=== PATIENT | male | born 1990 | race Caucasian/White ===

== ENCOUNTER → 2019-04-18 09:26 | Outpatient (CLI) | payer MEDICAID, SELFPAY ==
--- NOTE | 2019-04-18 09:29 | US_ITS ---
US abdomen complete COMPARISON: None HISTORY: ] Quadrant pain for 3 weeks TECHNIQUE: Ultrasound abdomen complete FINDINGS: The pancreas appears normal though portion of the tail is obscured by bowel gas. The liver is normal size and liver parenchyma appears normal. The gallbladder is normal size. There is a tiny amount biliary sludge present but no definite gallstones are seen. There is borderline gallbladder wall thickening but there is no pericholecystic fluid noted. The portal vein appears normal and flow is hepatopetal. The right kidney measures 11.1 x 5.5 x 6.9 cm and appears sonographically normal. The left kidney measures 11.0 x 5.7 x 6.3 cm and appears sonographically normal. The spleen appears normal. IMPRESSION: Small amount biliary sludge, no definite gallstones seen, otherwise unremarkable study
== END ==
PROVIDERS: PCP Nurse Practitioner Family; Visit Provider Nurse Practitioner Family
DX: R10.84 Generalized abdominal pain (principal)
CPT/HCPCS: 76700

== ENCOUNTER → 2019-04-29 10:21 | Outpatient (CLI) | payer MEDICAID, SELFPAY ==
--- NOTE | 2019-04-29 10:23 | NM_ITS ---
NM hepatobiliary w pharm HISTORY: Right upper quadrant pain with nausea and vomiting ITS.REASON: ACUTE CHOLECYSTITIS ORDERING PHYSICIAN: Bing Holt APRN PATIENT AGE: 28 years COMPARISON: None DOSE: 7.70 mci tc choletec 2.1 mcg of cck FINDINGS: Homogeneous activity is present within the hepatic parenchyma. Activity is present in the gallbladder by 15 minutes. Activity is present in the small bowel by 20 minutes. The gallbladder ejection fraction is calculated to be 95% The patient did not report pain or other symptoms during CCK infusion. IMPRESSION: Unremarkable hepatobiliary scan and gallbladder ejection fraction. No evidence of common or cystic duct obstruction with normal gallbladder ejection fraction
--- NOTE | 2019-04-29 11:21 | HMH.ITSHM ---
Current Home Medications as stated by this patient Guilherme Patton or premium service representative. [] effexor levothyroxie metoprolol gabapentin
== END ==
PROVIDERS: PCP Nurse Practitioner Family; Visit Provider Nurse Practitioner Family
DX: K81.0 Acute cholecystitis (principal)
CPT/HCPCS: 78227; A9537; J2805

== ENCOUNTER 2020-07-01 17:59 | Emergency (ER) | payer OTHER, SELFPAY ==
[2020-07-01 18:18] VITALS: BP 135/77; PULSE 64; RESP 14; TEMP 36.5; O2SAT 99; BMI 28.7
--- NOTE | 2020-07-01 18:40 | HMH.EDUTC ---
[facility] [place] Clinical Impression: Exposure to COVID-19 virus Disposition: Home, Self-Care Condition on Discharge: Good Instructions: Preventing the Spread of Coronavirus Discharge Instructions Additional Instructions: FOLLOW THE DIRECTIONS ON THE COVID-19 HAND OUT THAT WE GAVE YOU REGARDING SELF-ISOLATION UNTIL YOU KNOW YOUR COVID-19 RESULTS Referrals: Concha Flor APRN [Primary Care Provider] - Forms: Work/School Release Time of Disposition: 18:45 Medical Decision Making - Medical Records Medical records reviewed: No: I reviewed the patient's medical records. - Rudy Inquiry Pt receiving controlled substance: No Vital Signs: 07/01/20 18:18 07/01/20 18:52 Temperature 97.7 F 97.7 F Temperature Source Oral Pulse Rate 64 Pulse Rate [Right Brachial] 64 Respiratory Rate 14 14 Blood Pressure 135/77 Blood Pressure [Right Arm] 135/77 Blood Pressure Mean [Right Arm] 96 Blood Pressure Source [Right Arm] Automatic Cuff Blood Pressure Position [Right Arm] Sitting 02 Sat by Pulse Oximetry 99 Oxygen Delivery Method Room Air [facility] [place] - General Stated complaint: covid exposure Time Seen by Provider: 07/01/20 18:30 Mode of Arrival: Ambulatory Source of Information: Patient Limitations: No Limitations Description of Symptoms (Recalled from Triage Doc. by RN): PATIENT C/O FATIGUE AND BODY ACHES. STATES HE WAS EXPOSED TO COVID 6 DAYS AGO HEENT Symptoms (Recalled from RN notes): No Resp Symptoms (Recalled from RN notes): No Skin Symptoms (Recalled from RN notes): No MS Symptoms (Recalled from RN notes): Yes Functional Status (Recalled from RN notes): WNL - History of Present Illness Provider Complaint: His mother and father both have been sick with covid. He has been around them a lot before it was found that they have covid. - Related Data Home Medications Medication Instructions Recorded Confirmed Metoprolol Succinate 50 mg PO DAILY 05/19/19 07/01/20 Buprenorphine HCl/Naloxone HCl 1 each SL DAILY 07/01/20 07/01/20 [Buprenorphin-Naloxon 8-2 mg Sl] Allergies Allergy/AdvReac Type Severity Reaction Status Date / Time Penicillins Allergy Verified 06/20/18 10:20 - Worker's Comp Is this a Worker's Comp case?: No [facility] History - Hepatitis A Screen Drug use history?: No High risk sexual behaviors?: No History of sexually transmitted infection?: No Currently employed?: No Childcare worker?: No Do you have indoor plumbing?: Yes Do you have electricity?: Yes Attestation statement:: This patient has been screened for Hepatitis A risk factors. I have reviewed the patient's past medical history: Yes Medical History: Reports:: Hypertension Denies:: Diabetes Mellitus Type 1, Diabetes Mellitus Type 2, Internal Pacemaker, Lung Disease, Seizures Laterality Cases: Bilateral: Tonsillectomy Other Surgeries: No: Pacemaker - Social History Smoking Status: Current every day smoker Tobacco Type: cigarettes # Packs/Day (cigarettes): 1 #Yrs smoked (if former smoker): 14 Alcohol Intake: never Alcohol Intake Frequency:: holidays/special occasions only Occupational Status: other Family Hx:: Stroke, Heart Attack, Hypertension, Cancer, Diabetes, Hyperlipidemia ROS Obtained: Yes All systems reviewed & no additional complaints - Constitutional Constitutional: Denies chills, Denies fever(s) - Eyes Eyes: Denies eye discharge - ENT Ears, Nose, Mouth, and Throat: Denies dizziness, Denies otalgia, Denies sore throat - Cardiovascular Cardiovascular: Denies chest pain, Denies dyspnea - Respiratory Respiratory: No chest congestion, No cough Physical Exam - General General appearance: alert, in no apparent distress - Head Head exam: atraumatic, normocephalic, normal inspection - Eye Eye exam: Present: normal appearance, PERRL, EOMI - ENT ENT exam: Present: normal exam, normal oropharynx, mucous membranes moist, TM's normal bilaterally, normal external ear exam - Neck Ne
[2020-07-01 18:52] VITALS: BP 135/77; PULSE 64; RESP 14; TEMP 36.5; O2SAT 99
== END 2020-07-01 18:55 | disposition home or self-care (01) ==
PROVIDERS: Emergency Provider Nurse Practitioner Family; PCP Nurse Practitioner
DX: Z20.828 Contact with and (suspected) exposure to other viral communicable diseases (principal); I10 Essential (primary) hypertension; F17.210 Nicotine dependence, cigarettes, uncomplicated; Z88.0 Allergy status to penicillin
CPT/HCPCS: 99201; U0003

== ENCOUNTER 2020-07-15 19:07 | Emergency (ER) | payer OTHER, SELFPAY ==
[2020-07-15 19:43] VITALS: BP 124/81; PULSE 76; RESP 14; TEMP 36.8; O2SAT 100; BMI 28.7
--- NOTE | 2020-07-15 20:21 | HMH.EDUTC ---
[facility] [place] Clinical Impression: Exposure to COVID-19 virus, Viral syndrome Disposition: Home, Self-Care Condition on Discharge: Good Instructions: Preventing the Spread of Coronavirus Discharge Instructions Additional Instructions: Drink plenty of fluids. Take tylenol for pain or fever. Follow up with your regular doctor. GO TO THE ER FOR ANY WORSENING SYMPTOMS FOLLOW THE DIRECTIONS ON THE COVID-19 HAND OUT THAT WE GAVE YOU REGARDING SELF-ISOLATION UNTIL YOU KNOW YOUR COVID-19 RESULTS Referrals: Concha Flor APRN [Primary Care Provider] - Forms: Work/School Release Time of Disposition: 20:22 Medical Decision Making - Medical Records Medical records reviewed: No: I reviewed the patient's medical records. - Rudy Inquiry Pt receiving controlled substance: No Vital Signs: 07/15/20 19:43 07/15/20 20:26 Temperature 98.2 F 98.2 F Temperature Source Oral Oral Pulse Rate 76 Pulse Rate [Radial] 76 Respiratory Rate 14 14 Blood Pressure 124/81 Blood Pressure [Right Arm] 124/81 Blood Pressure Mean [Right Arm] 95 Blood Pressure Source Automatic Cuff Blood Pressure Source [Right Arm] Automatic Cuff Blood Pressure Position Sitting Blood Pressure Position [Right Arm] Sitting 02 Sat by Pulse Oximetry 100 Oxygen Delivery Method Room Air Room Air Orders (Tests/Meds): ORDERS Category Date Time Status Full Resp Panel w/COVID ([facility]) Routine Lab 07/15/20 19:53 [place] [facility] [place] - General Stated complaint: boyce,mUSCLE PAIN WANTS COVID TEST Time Seen by Provider: 07/15/20 19:45 Mode of Arrival: Ambulatory Source of Information: Patient Limitations: No Limitations Description of Symptoms (Recalled from Triage Doc. by RN): fever, boyce, muscle soreness, fatigue, loss of taste and smell, exposed to covid sunday. HEENT Symptoms (Recalled from RN notes): Yes Resp Symptoms (Recalled from RN notes): No Skin Symptoms (Recalled from RN notes): No MS Symptoms (Recalled from RN notes): No Functional Status (Recalled from RN notes): wnl - History of Present Illness Provider Complaint: He c/o muscle aches, feeling bad, low grade fever for the past 4 days. Both his parents have covid at this time. - Related Data Home Medications Medication Instructions Recorded Confirmed Metoprolol Succinate 50 mg PO DAILY 05/19/19 07/01/20 Buprenorphine HCl/Naloxone HCl 1 each SL DAILY 07/01/20 07/01/20 [Buprenorphin-Naloxon 8-2 mg Sl] Allergies Allergy/AdvReac Type Severity Reaction Status Date / Time Penicillins Allergy Verified 06/20/18 10:20 - Worker's Comp Is this a Worker's Comp case?: No [facility] History - Hepatitis A Screen Drug use history?: No High risk sexual behaviors?: No History of sexually transmitted infection?: No Currently employed?: No Childcare worker?: No Do you have indoor plumbing?: Yes Do you have electricity?: Yes Attestation statement:: This patient has been screened for Hepatitis A risk factors. I have reviewed the patient's past medical history: Yes Medical History: Reports:: Hypertension Denies:: Diabetes Mellitus Type 1, Diabetes Mellitus Type 2, Internal Pacemaker, Lung Disease, Seizures Laterality Cases: Bilateral: Tonsillectomy Other Surgeries: No: Pacemaker - Social History Smoking Status: Current every day smoker Tobacco Type: cigarettes # Packs/Day (cigarettes): 1 #Yrs smoked (if former smoker): 14 Alcohol Intake: never Alcohol Intake Frequency:: holidays/special occasions only Occupational Status: employed Family Hx:: Stroke, Heart Attack, Hypertension, Cancer, Diabetes, Hyperlipidemia ROS Obtained: Yes All systems reviewed & no additional complaints - Constitutional Constitutional: Reports chills, Reports fever(s), Reports poor appetite, Reports malaise - Eyes Eyes: Denies eye discharge - ENT Ears, Nose, Mouth, and Throat: Reports system reviewed and no additional complaints, except as docu - Cardiovascular Cardio
[2020-07-15 20:26] VITALS: BP 124/81; PULSE 76; RESP 14; TEMP 36.8; O2SAT 100
[2020-07-17 08:59] LABS: Covid-19 Nasal PCR Sendout UK NOT DETECTED
== END 2020-07-15 20:33 | disposition home or self-care (01) ==
PROVIDERS: Emergency Provider Nurse Practitioner Family; PCP Nurse Practitioner
DX: Z20.828 Contact with and (suspected) exposure to other viral communicable diseases (principal); R51.9 Headache, unspecified; R50.9 Fever, unspecified; M79.10 Myalgia, unspecified site; I10 Essential (primary) hypertension; F17.210 Nicotine dependence, cigarettes, uncomplicated; Z88.0 Allergy status to penicillin
CPT/HCPCS: 87581; 87633; 87798; 99201; U0003